=== PATIENT | female | born 1975 | race Two or more races ===

== ENCOUNTER 2016-08-02 08:17 | Emergency (ER) | payer MEDICAID ==
[~2016-08-02] VITALS: Ht 154.9 cm; Wt 56.7 kg
[2016-08-02 09:09] LABS: Basophils # (auto) 0.1 uL; Basophils % (auto) 0.7 % (0.0-2.0); Eosinophils # (auto) 0.4 uL; Eosinophils % (auto) 3.6 % (0.0-7.0); Hematocrit 37.8 % (36.0-46.0); Hemoglobin 12.3 g/dL (12.2-16.2); Lymphocytes # (auto) 3.7 uL; Mean Corpuscular Hemoglobin 28.3 pg (28.0-32.0); Mean Corpuscular Hgb Conc. 32.6 g/dL (32.0-36.0); Mean Corpuscular Volume 86.8 fL (80.0-100.0); Mean Platelet Volume 8.1 fL (7.4-10.4); Monocytes # (auto) 0.5 uL; Monocytes % (auto) 4.9 % (0.0-12.0); Neutrophils # (auto) 5.6 uL; Neutrophils % (auto) 54.8 % (37.0-80.0); Platelet Count (auto) 379 10^3/uL (140-450); Red Cell Distribution Width 13.5 % (11.6-16.0); White Blood Cell 10.2 10^3/uL (4.4-10.8)
[2016-08-02 09:28] LABS: Albumin 3.6 g/dL (3.4-5.0); Bilirubin, Total 0.1 mg/dL (0.2-1.0); Calcium 8.8 mg/dL (8.5-10.1); Potassium 3.9 mmol/L (3.5-5.1); Total Protein 8.3 g/dL (6.4-8.2)
[2016-08-02] MEDS ORDERED: MECLIZINE HCL 25 MG TAB PO ONE (09:45)
[2016-08-02] MEDS ORDERED: SODIUM CHLORIDE 0.9% 1,000 ML IV ONE (09:49)
[2016-08-02] MEDS ORDERED: PROMETHAZINE HCL 25 MG/ML 1ML IV ONE (10:30)
[2016-08-02 11:15] VITALS: BP 105/64
[2016-08-02 11:51] LABS: Urine Bilirubin Negative (Negative); Urine Color Yellow (Yellow); Urine Glucose Normal (Normal); Urine Ketone Negative (Negative); Urine RBC 8 /hpf (0 - 4); Urine Squamous Epithelial Cell FEW /hpf (<5); Urine Urobilinogen Normal (Negative)
[2016-08-02 11:53] LABS: Urine Blood 1+ /uL (Negative); Urine Nitrite POSITIVE (Negative)
[2016-08-02] MEDS ORDERED: NITROFURANTOIN (MONO) 100 mg CAP PO ONE (12:00)
== END 2016-08-02 12:34 | disposition home or self-care (01) ==
LOC: ER 08:22
DX: N39.0 Urinary tract infection, site not specified (principal); R42 Dizziness and giddiness; I10 Essential (primary) hypertension; E11.9 Type 2 diabetes mellitus without complications
CPT/HCPCS: 36415; 70450; 80053; 81001; 81025; 82962; 85025; 96360; 96361; 99285; J7030; J8597

== ENCOUNTER 2020-07-26 02:36 | Inpatient (IN) | payer MEDICAID ==
[~2020-07-26] VITALS: Ht 152.4 cm; Wt 66.1 kg
[2020-07-26] MEDS ORDERED: SODIUM CHLORIDE 0.9% 1,000 ML IVB ONE (07:30)
[2020-07-26] MEDS ORDERED: ONDANSETRON HCL 4 MG/2 ML VIAL IV ONE (07:30)
[2020-07-26] MEDS ORDERED: MORPHINE SULFATE 4 MG/ML SYR/VIAL IV ONE ×2 (07:30→11:00)
[2020-07-26 07:52] LABS: Basophils # (auto) 0 10 ^3/uL (0-0.2); Basophils % (auto) 0.2 % (0.0-2.0); Eosinophils # (auto) 0 10 ^3/uL (0-0.8); Hematocrit 37.3 % (36.0-46.0); Hemoglobin 12.6 g/dL (12.2-16.2); Lymphocytes # (auto) 0.8 10 ^3/uL (0.4-5.4); Lymphocytes % (auto) 4.1 % (10.0-50.0); Mean Corpuscular Hgb Conc. 33.9 g/dL (32.0-36.0); Mean Corpuscular Volume 85.6 fL (80.0-100.0); Monocytes # (auto) 0.5 10 ^3/uL (0-1.3); Monocytes % (auto) 2.4 % (0.0-12.0); Neutrophils # (auto) 18.4 10 ^3/uL (1.6-8.6); Neutrophils % (auto) 93.3 % (37.0-80.0); Platelet Count (auto) 354 10^3/uL (140-450); Red Blood Cells 4.35 10^6/uL (4.0-5.20); Red Cell Distribution Width 13.5 % (11.8-14.3); White Blood Cell 19.8 10^3/uL (4.4-10.8)
[2020-07-26 08:13] LABS: Amylase 40 U/L (25-115); Lipase 119 U/L (73-393); Potassium 3.8 mmol/L (3.5-5.1)
[2020-07-26 08:15] LABS: BUN/Creatinine Ratio 17.1; Bilirubin, Total 0.3 mg/dL (0.2-1.0); Total Protein 8.6 g/dL (6.4-8.2)
[2020-07-26 08:30] LABS: INR 0.97 (0.9-1.15); Partial Thromboplastin Time 26.8 sec (23.0-31.2)
[2020-07-26] MEDS ORDERED: metroNIDAZOLE 500MG/100ML 100 ML IV ONE (09:30)
[2020-07-26] MEDS ORDERED: CIPROFLOXACIN 400MG/200ML 200 ML IV ONE (09:30)
[2020-07-26] MEDS ORDERED: SODIUM CHLORIDE 0.9% 1,000 ML IV ONE ×2 (09:30→10:45)
[2020-07-26 09:56] LABS: Urine Bacteria FEW /hpf (None Seen); Urine Blood 1+ /uL (Negative); Urine Mucus FEW (None Seen); Urine Specific Gravity 1.002 (1.001-1.035); Urine WBC <1 /hpf (0 - 5)
[2020-07-26] MEDS ORDERED: MORPHINE SULF INJ 2 MG/ML SYRINGE 1ML IV PRN (10:45)
[2020-07-26] MEDS ORDERED: NITROGLYCERIN 0.4 MG SL TAB SL PRN (10:45)
[2020-07-26] MEDS: ONDANSETRON HCL 4 MG/2 ML VIAL IV PRN ×2 (11:49→18:41)
[2020-07-26] MEDS: SOD CHL 0.45% 1,000 ML IV SCH ×2 (12:26→20:48)
[2020-07-26] MEDS: MEPERIDINE HCL (25 MG/ML) 1ML VIAL IV PRN (18:41)
[2020-07-26 21:45] VITALS: BP 124/71
[2020-07-26 21:50] VITALS: BP 124/71
[2020-07-27] MEDS: MEPERIDINE HCL (25 MG/ML) 1ML VIAL IV PRN (04:18)
[2020-07-27] MEDS: ONDANSETRON HCL 4 MG/2 ML VIAL IV PRN (04:24)
[2020-07-27 05:00] VITALS: BP 93/62
[2020-07-27] MEDS: SOD CHL 0.45% 1,000 ML IV SCH ×2 (06:45→16:55)
[2020-07-27 07:14] LABS: Basophils # (auto) 0.1 10 ^3/uL (0-0.2); Basophils % (auto) 0.5 % (0.0-2.0); Eosinophils # (auto) 0.1 10 ^3/uL (0-0.8); Eosinophils % (auto) 0.9 % (0.0-7.0); Hematocrit 31.7 % (36.0-46.0); Hemoglobin 10.8 g/dL (12.2-16.2); Lymphocytes # (auto) 2.7 10 ^3/uL (0.4-5.4); Lymphocytes % (auto) 18.9 % (10.0-50.0); Mean Corpuscular Hemoglobin 29.5 pg (28.0-32.0); Mean Corpuscular Hgb Conc. 34.1 g/dL (32.0-36.0); Mean Corpuscular Volume 86.3 fL (80.0-100.0); Monocytes # (auto) 0.9 10 ^3/uL (0-1.3); Monocytes % (auto) 6.2 % (0.0-12.0); Neutrophils # (auto) 10.7 10 ^3/uL (1.6-8.6); Neutrophils % (auto) 73.5 % (37.0-80.0); Platelet Count (auto) 288 10^3/uL (140-450); Red Blood Cells 3.68 10^6/uL (4.0-5.20); Red Cell Distribution Width 13.8 % (11.8-14.3); White Blood Cell 14.5 10^3/uL (4.4-10.8)
[2020-07-27 07:25] LABS: Calcium 8.1 mg/dL (8.5-10.1); Potassium 3.4 mmol/L (3.5-5.1)
[2020-07-27 07:31] LABS: BUN/Creatinine Ratio 10.8; Bilirubin, Total 0.5 mg/dL (0.2-1.0); Total Protein 7.4 g/dL (6.4-8.2)
[2020-07-27 09:00] VITALS: BP 98/65
[2020-07-27] MEDS: PANTOPRAZOLE 40 MG TAB PO SCH (09:33)
[2020-07-27 13:00] VITALS: BP 112/75
[2020-07-27] MEDS ORDERED: levoFLOXacin 500MG 100 ML IV ONE (13:45)
[2020-07-27] MEDS ORDERED: traMADol HCL 50 MG TAB PO PRN (13:45)
[2020-07-27] MEDS ORDERED: MORPHINE SULF INJ 2 MG/ML SYRINGE 1ML IV PRN (13:45)
[2020-07-27] MEDS ORDERED: POTASSIUM CHL 20 Meq TABLET PO ONE (14:00)
[2020-07-27] MEDS: metroNIDAZOLE 500MG/100ML 100 ML IV SCH ×2 (16:33→22:05)
[2020-07-27 16:50] VITALS: BP 111/79
[2020-07-27 22:00] VITALS: BP 111/69
[2020-07-27] MEDS: ACETAMINOPHEN 325 MG TAB PO PRN (22:34)
[2020-07-28 05:00] VITALS: BP 103/66
[2020-07-28] MEDS: metroNIDAZOLE 500MG/100ML 100 ML IV SCH ×2 (06:08→13:58)
[2020-07-28] MEDS: SOD CHL 0.45% 1,000 ML IV SCH ×2 (06:08→12:45)
[2020-07-28] MEDS: ACETAMINOPHEN 325 MG TAB PO PRN (06:09)
[2020-07-28 07:24] VITALS: BP 102/61
[2020-07-28 07:58] LABS: Basophils # (auto) 0.1 10 ^3/uL (0-0.2); Basophils % (auto) 0.5 % (0.0-2.0); Eosinophils # (auto) 0.2 10 ^3/uL (0-0.8); Eosinophils % (auto) 1.9 % (0.0-7.0); Hematocrit 31.6 % (36.0-46.0); Lymphocytes # (auto) 2.7 10 ^3/uL (0.4-5.4); Lymphocytes % (auto) 22.2 % (10.0-50.0); Mean Corpuscular Hemoglobin 29.7 pg (28.0-32.0); Mean Corpuscular Hgb Conc. 34.7 g/dL (32.0-36.0); Mean Corpuscular Volume 85.5 fL (80.0-100.0); Monocytes # (auto) 0.6 10 ^3/uL (0-1.3); Monocytes % (auto) 5.3 % (0.0-12.0); Neutrophils # (auto) 8.5 10 ^3/uL (1.6-8.6); Neutrophils % (auto) 70.1 % (37.0-80.0); Nucleated Red Blood Cells % 0.1 %; Platelet Count (auto) 298 10^3/uL (140-450); Red Blood Cells 3.69 10^6/uL (4.0-5.20); Red Cell Distribution Width 13.4 % (11.8-14.3); White Blood Cell 12.1 10^3/uL (4.4-10.8)
[2020-07-28 08:14] LABS: BUN/Creatinine Ratio 12.7; Calcium 8.2 mg/dL (8.5-10.1); Potassium 3.3 mmol/L (3.5-5.1)
[2020-07-28] MEDS ORDERED: POTASSIUM EFFERVESENT TAB 25 MEQ PO ONE (09:15)
[2020-07-28] MEDS: PANTOPRAZOLE 40 MG TAB PO SCH (09:36)
[2020-07-28] MEDS ORDERED: levoFLOXacin 500MG 100 ML IV SCH (10:00)
[2020-07-28 12:45] VITALS: BP 108/75
== END 2020-07-28 15:15 | disposition home or self-care (01) | DRG 249 ==
LOC: EDBD 02:36 → ER 02:38 → OVERFLOW 02:39 → EAST 21:41
PROVIDERS: ADMIT Nurse Practitioner Acute Care; ATTEND Internal Medicine
DX: A09 Infectious gastroenteritis and colitis, unspecified (principal); Z20.822 Contact with and (suspected) exposure to COVID-19; R65.10 Systemic inflammatory response syndrome (SIRS) of non-infectious origin without acute organ dysfunction
CPT/HCPCS: 36415; 74176; 76705; 80048; 80053; 81001; 82150; 82270; 82378; 83605; 83690; 83735; 84484; 84702; 85025; 85610; 85730; 87040; 87045; 87426; 87427; G0378; J1956; J2405; J3490